=== PATIENT | male | born 1975 | race Caucasian/White ===

== ENCOUNTER 2018-08-12 23:54 | Emergency (ER) | payer OTHER, BC ==
[~2018-08-12] VITALS: Ht 160 cm; Wt 127.2 kg
[2018-08-13] MEDS ORDERED: AUGMENTIN 875-1 EACH PO (00:21)
[2018-08-13] MEDS ORDERED: ELIQUIS2.5 MG PO (00:21)
[2018-08-13] MEDS ORDERED: VITAMINC500 PO (00:22)
[2018-08-13] MEDS ORDERED: BISOPROLOL FUM2.5 MG PO (00:23)
[2018-08-13] MEDS ORDERED: DOXYCYCLINE 10100 MG PO (00:23)
[2018-08-13 00:25] LABS: HEMATOCRIT 31.2 % (42.0-52.0); HEMOGLOBIN 9.4 gm/dL (14.0-18.0); MCH 18.4 pg (26.0-34.0); MCHC 30.1 g/dL (28.0-37.0); MCV 61.2 fL (80.0-100.0); PLATELET COUNT 655 thou/uL (150-400); RDW 20.9 % (10.5-14.5); WBC 10.8 thou/uL (4.0-11.0)
[2018-08-13] MEDS ORDERED: HYDROCORTISO28.35 G1 (00:25)
[2018-08-13 00:33] LABS: CALCIUM 8.6 mg/dL (8.5-10.1); CREATININE 1.5 mg/dL (0.7-1.3); POTASSIUM 3.9 mmol/L (3.5-5.1)
[2018-08-13 00:39] LABS: ALBUMIN 1.9 g/dL (3.4-5.0); TOTAL BILIRUBIN 0.4 mg/dL (<0.1-1.0); TOTAL PROTEIN 7.4 g/dL (6.4-8.2)
[2018-08-13 01:12] LABS: ABSOLUTE NEUTROPHILS 4.8 thou/uL (1.4-8.2)
[2018-08-13 01:14] LABS: PLATELET ESTIMATE MARKEDLY INCREASED
[2018-08-13 01:15] LABS: ANISOCYTOSIS 2+; HYPOCHROMASIA 3+; LARGE PLATELETS FEW; MICROCYTES 3+; POLYCHROMASIA 1+; SCHISTOCYTES FEW; TARGET CELLS 1+
[2018-08-13 01:38] LABS: URINE CLARITY CLOUDY; URINE COLOR YELLOW
[2018-08-13 01:39] LABS: URINE SPECIFIC GRAVITY 1.015 (1.005-1.035)
[2018-08-13 01:40] LABS: URINE BILIRUBIN NEGATIVE (Negative); URINE BLOOD 3+ (Negative); URINE GLUCOSE-RANDOM* NEGATIVE (Negative); URINE KETONES TRACE (Negative); URINE NITRITE-REFLEX NEGATIVE (Negative); URINE PROTEIN (DIPSTICK) 2+ (Negative)
[2018-08-13 01:41] LABS: URINE LEUKOCYTES-REFLEX 3+ (Negative); URINE UROBILINOGEN 0.2 E.U./dl (0.2-1.0)
[2018-08-13 01:43] LABS: BACTERIA-REFLEX >30 Many /HPF (None Seen); CASTS None Seen /LPF (None Seen); CRYSTALS None Seen /LPF (None Seen); MUCUS 0-3 Light strn/LPF (None Seen); SQUAMOUS 0-3 Few /LPF (0-3); URINE RBC >20 Many /HPF (0-2); URINE WBC-REFLEX >25 Many /HPF (0-5); WBC CLUMPS Packed (None Seen)
[2018-08-13 03:20] VITALS: BP 170/80
== END 2018-08-13 03:20 | disposition short-term general hospital (02) ==
LOC: ER 23:54
PROVIDERS: Emergency Medicine
DX: N20.0 Calculus of kidney (principal); Z88.1 Allergy status to other antibiotic agents